=== PATIENT | male | born 1990 | race Caucasian/White ===

== ENCOUNTER 2017-05-01 18:47 | Emergency (ER) | payer SELFPAY ==
[2017-05-01 18:51] VITALS: BP 150/95; PULSE 89; TEMP 99.1; BMI 29.0
[2017-05-01] MEDS ORDERED: LIDOCAINE 1%/EPI 1:100000 (20 ML MULTI DOSE VIAL) ONE (20:35)
--- NOTE | 2017-05-01 20:38 | PDOC ---
History of Present Illness - General Chief Complaint: Wound Stated Complaint: CYST Time Seen by Provider: 05/01/17 19:58 History Source: Patient Exam Limitations: No Limitations - History of Present Illness Initial Comments: 05/01/17 20:34 Patient is a 26-year-old male with history of pilonidal cyst presents emergency Department with recurrence. Started on April 25 patient started developed pain to area now with increased pain, redness and swelling. Fever. Patient states one month ago had same symptoms was seen at [facility] emergency department started on antibiotics no I&D was performed patient states that symptoms resolved on their own after the antibiotic therapy and he did not follow-up with surgeon. Past Medical History: Denies. Allergies: No known allergies Medications: None Family History: Non-contributory Social History: Denies smoking, alcohol use, or IVDU Vital signs on arrival are notable for pulse of 96. Review of Systems GENERAL/CONSTITUTIONAL: No fever or chills. No weakness. No weight change. HEAD, EYES, EARS, NOSE AND THROAT: No change in vision. No ear pain or discharge. No sore throat. CARDIOVASCULAR: No chest pain or shortness of breath. RESPIRATORY: No cough, wheezing, or hemoptysis. GASTROINTESTINAL: No nausea, vomiting, diarrhea or constipation. No rectal bleeding. GENITOURINARY: No dysuria, frequency, or change in urination. MUSCULOSKELETAL: No joint or muscle swelling or pain. No neck or back pain. SKIN AND BREASTS: No rash or easy bruising. Pain, redness swelling to base of spine, gluteal cleft Physical Exam: GENERAL: The patient is awake, alert, and fully oriented, in no acute distress. HEAD: Normal with no signs of trauma. EYES: Pupils equal, round and reactive to light, extraocular movements intact, sclera anicteric, conjunctiva clear. ENT: Ears normal, nares patent, oropharynx clear without exudates. Moist mucous membranes. No uvula deviation NECK: Normal range of motion, supple without lymphadenopathy, JVD, or masses. LUNGS: Breath sounds equal, clear to auscultation bilaterally. No wheezes, and no crackles. HEART: Regular rate and rhythm, normal S1 and S2 without murmur, rub or gallop. ABDOMEN: Soft, nontender, normoactive bowel sounds. No guarding, no rebound. No masses. No bruising or abrasions MUSCULOSKELETAL: Normal range of motion, no edema. No clubbing or cyanosis. No cords, erythema, or tenderness. No CVA Tenderness with fist. SKIN: Warm, Dry, normal turgor, no rashes or lesions noted. Pain, redness, swelling with fluctuance localized induration at base of spine, gluteal cleft right side Past History - Past Medical History Allergies/Adverse Reactions: Allergies Allergy/AdvReac Type Severity Reaction Status Date / Time No Known Allergies Allergy Verified 05/01/17 18:51 Home Medications: Ambulatory Orders No Home Medications 0 dose .ROUTE UTDICT 07/16/13 Doxycycline Hyclate 100 mg PO BID #14 capsule 05/01/17 Oxycodone HCl/Acetaminophen [Percocet 5-325 mg Tablet] 1 tab PO Q4H #22 tablet MDD 10 05/01/17 Other medical history: boil - Suicide/Smoking/Psychosocial Hx Smoking History: Current every day smoker Number of Cigarettes Smoked Daily: 5 Information on smoking cessation initiated: Yes 'Breaking Loose' booklet given: 05/01/17 Hx Alcohol Use: No Drug/Substance Use Hx: No Substance Use Type: None *Physical Exam - Vital Signs Last Vital Signs Temp Pulse Resp BP Pulse Ox 99.1 F 89 19 150/95 98 05/01/17 18:49 05/01/17 18:49 05/01/17 18:49 05/01/17 18:49 05/01/17 18:49 Medical Decision Making - Medical Decision Making 05/01/17 20:37 A/P: Patient here for evaluation of pilonidal cyst, low-grade temperature, Dr. Sanders from surgery called to evaluate patient will perform I&D. Sent to main emergency department for IV antibiotics and higher level of care. Report to Dr. Washburn. Patient stable for transfer. 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
[2017-05-01] MEDS ORDERED: DOXYCYCLINE HYCLATE 100 MG VIAL ONE (21:11)
--- NOTE | 2017-05-01 21:15 | CONSULT ---
Consult Consult Specialty:: General Surgery Referred by:: Jenniffer Ramachandran Reason for Consultation:: pilonidal abscess - History of Present Illness Chief Complaint: lower back/sacrococcygeal pain, swelling, redness History of Present Illness: 26yo healthy M had pilonidal abscess about a month ago that was treated with antibiotics alone (cannot remember name) and seemed to get better, but pain and redness with mild swelling returned last week. Started ~Tuesday, not associated with f/c, n/v, d/c. Normal BMs, last yesterday. No problems with urination. In ER, noted to have pilonidal erythema, mostly on left side, with tenderness, fluctuance, minimal induration, over ~6cm area. Surgery asked to see regarding drainage. - History Source History Provided By: Patient Limitations to Obtaining History: No Limitations - Past Medical History Additional Medical History: pilonidal abscess ~1m ago - abx only - Past Surgical History Past Surgical History: Yes: None - Alcohol/Substance Use Hx Alcohol Use: Yes (weekends/social) History of Substance Use: reports: Marijuana Date of Last Use: 04/24/17 (about every other week) - Smoking History Smoking history: Current some day smoker Have you smoked in the past 12 months: Yes Aproximately how many cigarettes per day: 5 (smokes on weekends) - Social History Usual Living Arrangement: Other (with sister) Home Medications - Allergies Allergies/Adverse Reactions: Allergies Allergy/AdvReac Type Severity Reaction Status Date / Time No Known Allergies Allergy Verified 05/01/17 18:51 - Home Medications Home Medications: Ambulatory Orders No Home Medications 0 dose .ROUTE UTDICT 07/16/13 Doxycycline Hyclate 100 mg PO BID #14 capsule 05/01/17 Oxycodone HCl/Acetaminophen [Percocet 5-325 mg Tablet] 1 tab PO Q4H #22 tablet MDD 10 05/01/17 Family Disease History - Family Disease History Family History: Unremarkable Review of Systems - Review of Systems Constitutional: denies: Chills, Fever Eyes: denies: Blurred Vision, Recent Change in Vision HENT: denies: Nasal Congestion, Throat Pain Cardiovascular: denies: Chest Pain, Palpitations Respiratory: denies: Cough, SOB Gastrointestinal: denies: Abdominal Pain, Constipation, Diarrhea, Nausea, Vomiting Genitourinary: denies: Burning, Dysuria Musculoskeletal: reports: Back Pain (at sacral area/hpi). denies: Joint Pain, Joint Swelling Integumentary: reports: Erythema (with hpi). denies: Rash Neurological: denies: Dizziness, Headache Psychiatric: denies: Anxiety, Depression Physical Exam Vital Signs: Vital Signs Temperature 99.1 F 05/01/17 18:49 Pulse Rate 89 05/01/17 18:49 Respiratory Rate 19 05/01/17 18:49 Blood Pressure 150/95 05/01/17 18:49 O2 Sat by Pulse Oximetry (%) 98 05/01/17 18:49 Constitutional: Yes: Well Nourished, Calm, Mild Distress Eyes: Yes: Conjunctiva Clear, EOM Intact HENT: Yes: Atraumatic, Normocephalic Cardiovascular: Yes: Regular Rate and Rhythm. No: Murmur Respiratory: Yes: Regular, CTA Bilaterally Gastrointestinal: Yes: Soft. No: Tenderness ...Rectal Exam: Yes: Deferred, Other (monse cleft with mostly left-sided erythema, fluctuance, tenderness, extending to midline but little on right side) Renal/: No: CVA Tenderness - Left, CVA Tenderness - Right Musculoskeletal: No: Joint Stiffness, Joint Swelling Extremities: No: Cool, Cyanosis Integumentary: No: Jaundice, Rash Neurological: Yes: Alert, Oriented Psychiatric: Yes: Alert, Oriented Problem List - Problems (1) Cyst, pilonidal, with abscess Assessment/Plan: ER gave pain meds and first dose Doxycycline IV Discussed with patient risks, benefits and alternatives of incision and drainage of pilonidal abscess, including but not limited to bleeding, infection , recurrence; alternatives include antibiotics or no surgery - risks of this include failure of nonoperative therapy, sepsis, recurrence. Patient desires to have procedure - informed consent signed for same. Hair removed from area and I&D performed in ER under local anesthesia - see separate note Culture of pus sent to micro Pt's girlfriend shown how to pack and care for wound. Dressing to stay until Tuesday morning, when she will start daily dressing changes. Materials given to them. Doxycycline bid x7d Tylenol and Ibuprofen for pain, Percocet Rx #22 for before dressings and prn if Tylenol not enough Stool softener recommended if using Percocet Advised pt that definitive operation may be needed in future to prevent recurrence; long-term hair removal may also be beneficial Pt to f/u with me Tuesday in clinic - instructions in d/c plan, given my card. Code(s): L05.01 - PILONIDAL CYST WITH ABSCESS
[2017-05-01] MEDS ORDERED: morphine CARPU-JECT 4 MG/1 ML DISP.SYRIN IVPUSH ONE (21:16)
[2017-05-01] MEDS ORDERED: DOXYCYCLINE INJECTION 100 MG in DEXTROSE 5%-WATER - 100 ML IVPB ONE (21:16)
[2017-05-01] MEDS ORDERED: morphine CARPU-JECT 4 MG/1 ML DISP.SYRIN ONE (21:27)
[2017-05-01] MEDS ORDERED: oxyCODONE HCL 5 MG TABLET PO ONE (21:30)
[2017-05-01] MEDS ORDERED: ACETAMINOPHEN 325 MG TABLET (FP) PO ONE (21:30)
--- NOTE | 2017-05-01 21:31 | PDOC ---
*Physical Exam - Vital Signs Last Vital Signs Temp Pulse Resp BP Pulse Ox 99.1 F 89 19 150/95 98 05/01/17 18:49 05/01/17 18:49 05/01/17 18:49 05/01/17 18:49 05/01/17 18:49 Medical Decision Making - Medical Decision Making 05/01/17 21:31 26-year-old male with a pilonidal cyst was transferred from fast track to the emergency department for incision and drainage of his abscess. Surgeon Dr. Luther Sanders is bed side to do the procedure 05/01/17 22:46 will follow up on Tuesday at surgical clinic Dr Luther Sanders - he will take week of doxyccline IMP pilonidal cyst *DC/Admit/Observation/Transfer Diagnosis at time of Disposition: Cyst, pilonidal, with abscess - Discharge Dispostion Disposition: HOME Condition at time of disposition: Stable - Prescriptions Prescriptions: Doxycycline Hyclate 100 mg PO BID #14 capsule Oxycodone HCl/Acetaminophen [Percocet 5-325 mg Tablet] 1 tab PO Q4H #22 tablet MDD 10 - Patient Instructions Printed Discharge Instructions: Pilonidal Cyst, DI for Incision and Drainage of a Skin Abscess Additional Instructions: 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
--- NOTE | 2017-05-01 23:40 | PROC ---
Incision and Drainage Indication/Location: pilonidal abscess Risks and Benefits Explained: Yes Consent on Chart: Yes Betadine cleansed: Yes Anesthesia: 1% Lidocaine w/ Epi Blade Size: 15 Drainage: pus - culture taken Irrigated with Normal Saline: No (irrigated with local anesthetic) Iodinated Packin/2 in Sterile Dressing Applied: Yes - Remarks Remarks: left paramedian incision; butterfly-shaped wound cavity centered on midline; small ellipse of skin taken to facilitate packing; some pieces of cyst wall removed from lining of wound cavity
== END 2017-05-01 23:04 | disposition home or self-care (01) ==
LOC: JER 18:47 → JERFT 18:47 → JER 23:04
PROC: 0H98XZZ Drainage of Buttock Skin, External Approach (ICD-10-PCS; principal; 2017-05-01)
PROC: 3E03329 Introduction of Other Anti-infective into Peripheral Vein, Percutaneous Approach (ICD-10-PCS; 2017-05-01)
PROC: 3E033NZ Introduction of Analgesics, Hypnotics, Sedatives into Peripheral Vein, Percutaneous Approach (ICD-10-PCS; 2017-05-01)
DX: L05.01 Pilonidal cyst with abscess (principal)
CPT/HCPCS: 87070; 87205; 99282-25